=== PATIENT | female | born 1980 | race Caucasian/White ===

== ENCOUNTER 2017-06-26 11:33 | Inpatient (IN) | payer OTHER ==
[~2017-06-26] VITALS: Ht 170.2 cm; Wt 74.8 kg
[~2017-06-26 11:33] MED LIST: ANTIVERT25 M1 PO; CIPRO500 MG PO; CODE1TAB37 PO; DOCUSATE SODIU100 MG PO; INTEGRA PLUS C1 EACH PO; MOTRIN800 MG PO; Mylicon 125MG PO; ORPH100T PO
[2017-06-28] MEDS ORDERED: PROPRANOLOL HCL10 MG PO (11:37)
[2017-06-28] MEDS ORDERED: PANTOPRAZOLE SO40 MG PO (11:45)
[2017-06-28] MEDS ORDERED: LEVOTHYROXINE125 MCG PO (11:49)
== END 2017-06-28 16:25 | disposition home or self-care (01) | DRG 392 ==
LOC: SURH 11:33
PROC: 0DB78ZX Excision of Stomach, Pylorus, Via Natural or Artificial Opening Endoscopic, Diagnostic (ICD-10-PCS; principal; 2017-06-27)
PROC: 30233R1 Transfusion of Nonautologous Platelets into Peripheral Vein, Percutaneous Approach (ICD-10-PCS; 2017-06-27)
DX: K29.40 Chronic atrophic gastritis without bleeding (principal); D69.1 Qualitative platelet defects; I34.1 Nonrheumatic mitral (valve) prolapse; D50.0 Iron deficiency anemia secondary to blood loss (chronic)

== ENCOUNTER 2019-12-09 07:08 | Inpatient (IN) | payer OTHER ==
[~2019-12-09] VITALS: Ht 170.2 cm; Wt 85.7 kg
[~2019-12-09 07:08] MED LIST changes: +LEVOTHYROXINE125 MCG PO; +PANTOPRAZOLE SO40 MG PO; +PROPRANOLOL HCL10 MG PO
[2019-12-10] MEDS ORDERED: MAXIMUM D3325 MCG (08:29)
[2019-12-10] MEDS ORDERED: SYNTHROID137 MCG (08:29)
[2019-12-10] MEDS ORDERED: PROPRANOLOL HCL60 M1 PO (08:31)
[2019-12-10] MEDS ORDERED: B-123000 MCG SL (08:35)
[2019-12-10] MEDS ORDERED: VITAMIN C100 MG PO (08:37)
[2019-12-10] MEDS ORDERED: PROBIOTIC1 EAC2 PO (08:37)
[2019-12-10] MEDS ORDERED: B-12 COMPL1000 MCG/1 IJ (08:37)
[2019-12-10] MEDS ORDERED: ECHINACEA80 MG PO (08:39)
[2019-12-10] MEDS ORDERED: IRO-PLEX LIQUI120 ML PO (08:40)
[2019-12-10] MEDS ORDERED: B-TREX (08:53)
[2019-12-11] MEDS ORDERED: PROBIOTIC1 EAC2 PO (10:52)
[2019-12-11] MEDS ORDERED: SYNTHROID137 MCG PO (10:52)
[2019-12-11] MEDS ORDERED: PANTOPRAZOLE SO40 MG PO (10:52)
[2019-12-11] MEDS ORDERED: PROPRANOLOL HCL60 M1 PO (10:52)
== END 2019-12-11 13:21 | disposition home or self-care (01) | DRG 392 ==
LOC: SURH 07:33
PROVIDERS: ADMIT Internal Medicine Geriatric Medicine; ATTEND Internal Medicine Geriatric Medicine
PROC: 0DD68ZX Extraction of Stomach, Via Natural or Artificial Opening Endoscopic, Diagnostic (ICD-10-PCS; principal; 2019-12-10)
PROC: 0DJD8ZZ Inspection of Lower Intestinal Tract, Via Natural or Artificial Opening Endoscopic (ICD-10-PCS; 2019-12-10)
PROC: 30233R1 Transfusion of Nonautologous Platelets into Peripheral Vein, Percutaneous Approach (ICD-10-PCS; 2019-12-10)
DX: K29.40 Chronic atrophic gastritis without bleeding (principal); I34.1 Nonrheumatic mitral (valve) prolapse; D69.1 Qualitative platelet defects; E03.8 Other specified hypothyroidism; D50.0 Iron deficiency anemia secondary to blood loss (chronic); Z20.828 Contact with and (suspected) exposure to other viral communicable diseases; Z90.710 Acquired absence of both cervix and uterus

== ENCOUNTER 2022-02-15 07:30 | Outpatient (CLI) | payer OTHER ==
[~2022-02-15 07:30] MED LIST changes: +B-12 COMPL1000 MCG/1 IJ; +B-123000 MCG SL; +B-TREX; +ECHINACEA80 MG PO; +IRO-PLEX LIQUI120 ML PO; +MAXIMUM D3325 MCG; +PROBIOTIC1 EAC2 PO; +PROPRANOLOL HCL60 M1 PO; +SYNTHROID137 MCG; +SYNTHROID137 MCG PO; +VITAMIN C100 MG PO
== END 2022-02-15 07:35 | disposition home or self-care (01) ==
LOC: LAB 07:30
PROVIDERS: ATTEND Internal Medicine Hematology & Oncology
DX: D50.8 Other iron deficiency anemias (principal); I10 Essential (primary) hypertension; R74.02 Elevation of levels of lactic acid dehydrogenase [LDH]; K76.89 Other specified diseases of liver; D51.8 Other vitamin B12 deficiency anemias; E55.9 Vitamin D deficiency, unspecified; E78.2 Mixed hyperlipidemia; E03.8 Other specified hypothyroidism; R97.0 Elevated carcinoembryonic antigen [CEA]; R97.8 Other abnormal tumor markers

== ENCOUNTER → 2024-08-10 09:07 | Outpatient (CLI) | payer OTHER ==
[2024-08-10 09:41] LABS: BASO % 0.7 % (0.1-1.2); EOS # 0.12 (0.04-0.54); EOS % 1.7 % (0.7-7.0); HEMATOCRIT 37.2 % (34.1-44.9); HEMOGLOBIN 12.7 g/dL (11.2-15.7); LYMPH # 2.37 (1.18-3.74); LYMPH % 33.6 % (19.3-53.1); MEAN CORPUSCULAR HEMOGLOBIN 31.9 pg (25.6-32.2); MONO % 5.7 % (4.7-12.5); NEUT # 4.09 (1.56-6.13); PLATELET COUNT 217 K/uL (163-369); RED BLOOD COUNT 3.98 M/uL (3.93-5.22); RED CELL DISTRIBUTION WIDTH 13.8 % (11.6-14.4)
[2024-08-10 10:41] LABS: ALBUMIN 3.9 gm/dL (3.4-5.0); BILIRUBIN TOTAL 0.43 mg/dL (0.3-1.2); CALCIUM 8.8 mg/dL (8.5-10.1); CHOL HDL RATIO 3.5 (0-5.0); CREATININE SERUM 0.91 mg/dL (0.55-1.02); GFR 66.85; POTASSIUM 4.59 mEq/L (3.5-5.1); T4 FREE 1.15 NG/ML (0.76-1.46); TOTAL PROTEIN 7.9 gm/dL (6.4-8.2)
[2024-08-10 10:54] LABS: TSH 11.7 uIU/mL (0.358-3.74)
[2024-08-11 14:43] LABS: FOLIC ACID 10.2 ng/ml (4.78-20); VITAMIN D3 25 HYDROXY 38.66 ng/ml (30-120)
== END | disposition home or self-care (01) ==
LOC: LAB 09:07
PROVIDERS: ATTEND Internal Medicine Hematology & Oncology
DX: D69.1 Qualitative platelet defects (principal); D51.1 Vitamin B12 deficiency anemia due to selective vitamin B12 malabsorption with proteinuria; D50.8 Other iron deficiency anemias; E55.9 Vitamin D deficiency, unspecified; R97.0 Elevated carcinoembryonic antigen [CEA]; E03.8 Other specified hypothyroidism; K59.04 Chronic idiopathic constipation; I10 Essential (primary) hypertension; R74.02 Elevation of levels of lactic acid dehydrogenase [LDH]; K76.89 Other specified diseases of liver; D51.8 Other vitamin B12 deficiency anemias; E78.2 Mixed hyperlipidemia; C56.9 Malignant neoplasm of unspecified ovary; R97.8 Other abnormal tumor markers; R97.1 Elevated cancer antigen 125 [CA 125]